=== PATIENT | female | born 1985 | race Caucasian/White ===

== ENCOUNTER → 2016-10-04 | Outpatient (CLI) | payer OTHER ==
[~2016-10-04] MED LIST: Iopamidol 612 MG/ML 100 ML Bottle IVPUSH STA
--- NOTE | 2016-10-04 10:25 | US ---
EXAMINATION: Hysterosalpingogram. HISTORY: Infertility. Evaluate for tubal patency. PROCEDURE/FINDINGS: Written informed consent was obtained from the patient. Perineum was prepped wit h Betadine and after placement of vaginal speculum, the cervix was prepped with Betadine. A 5 [place] catheter was placed and after inflation of the balloon, 8 cc of contrast was injected until cornual regions are filled and multiple views of the pelvis are obtained. The uterine cavity is normal in configuration. No suspicious filling defects are seen. The right and left fallopian tubes are patent and spillage of contrast is noted into peritoneal cavi ty bilaterally. IMPRESSION: Patent fallopian tubes bilaterally.
== END | disposition home or self-care (01) ==
LOC: MW.DI 08:21
PROVIDERS: ATTEND Obstetrics & Gynecology Gynecology
DX: Z31.41 Encounter for fertility testing (principal)
CPT/HCPCS: 58340; 74740; 74740-26; 81025

== ENCOUNTER → 2016-10-25 | Outpatient (CLI) | payer OTHER | END | disposition home or self-care (01) | LOC: MW.LAB 12:24 | PROVIDERS: ATTEND Obstetrics & Gynecology Gynecology | DX: Z32.00 Encounter for pregnancy test, result unknown (principal) | CPT/HCPCS: 36415; 84144; 84702 ==

== ENCOUNTER → 2016-10-29 | Outpatient (CLI) | payer OTHER | LOC: MW.LAB 13:40 | PROVIDERS: ATTEND Obstetrics & Gynecology Gynecology | DX: Z32.00 Encounter for pregnancy test, result unknown (principal) | CPT/HCPCS: 36415; 84144; 84702 ==